=== PATIENT | female | born 1950 | race Two or more races ===

== ENCOUNTER → 2017-12-11 | Emergency (ER) | payer OTHER ==
[~2017-12-11] VITALS: Ht 162.6 cm; Wt 87.1 kg
[~2017-12-11] MED LIST: ATORVASTATIN CA10 MG; SYNTHROID50 MCG
== END | disposition home or self-care (01) ==
LOC: ER 08:00
DX: R10.11 Right upper quadrant pain (principal)

== ENCOUNTER 2018-04-18 22:51 | Emergency (ER) | payer OTHER ==
[~2018-04-18] VITALS: Ht 152.4 cm; Wt 88.5 kg
[2018-04-19] MEDS ORDERED: MECLIZINE HCL25 MG PO (04:35)
== END 2018-04-19 05:15 | disposition home or self-care (01) ==
LOC: ER 22:51
DX: R42 Dizziness and giddiness (principal); R11.10 Vomiting, unspecified